=== PATIENT | female | born 1980 | race Two or more races ===

== ENCOUNTER 2023-02-05 18:44 | Emergency (ER) | payer MEDICARE ==
[2023-02-05 19:50] LABS: INFLUENZA A NAA NEGATIVE (NEGATIVE); INFLUENZA B NAA NEGATIVE (NEGATIVE); RESPIRATORY SYNCYTIAL VIR NAA NEGATIVE (NEGATIVE)
[2023-02-05 19:51] LABS: CORONAVIRUS COVID-19 NAA NEGATIVE (NEGATIVE)
== END 2023-02-05 20:14 | disposition home or self-care (01) ==
LOC: FB.ED 18:44
DX: J06.9 Acute upper respiratory infection, unspecified (principal); Z72.0 Tobacco use; Z20.822 Contact with and (suspected) exposure to COVID-19
CPT/HCPCS: 0241U; 99283